=== PATIENT | male | born 1975 | race Caucasian/White ===

== ENCOUNTER 2018-06-13 09:27 | Emergency (ER) | payer SELFPAY ==
[2018-06-13 09:51] VITALS: TEMP 36.7
--- NOTE | 2018-06-13 10:49 | ED_ITS ---
HPI - Back Pain/Injury General Chief Complaint: Back Pain/Injury Stated Complaint: BACK PAIN X2 DAYS Time Seen by Provider: 06/13/18 10:49 Source: patient and other (coworker/boss) Mode of arrival: ambulatory Limitations: no limitations History of Present Illness HPI Narrative: This is a 42-year-old male who comes the emergency department with complaint of low back pain. Patient states it started 2 days ago. He s tates he was stepping down his into a boat when he stepped with his left leg he states he stepped sort of funny and he felt just a twinge or something release in his back and immediately started having pain. He states he has been quite uncomfortable. He has difficulty finding any comfort. He is actually lying flat on the floor in the room with his feet flat and knees bent. He states he tried the head but that it was not hard enough and that the floor feels better. We did discuss that I did recommend lying on the ER hospital for but he prefers to stay there. Patient denies any loss of bowel or bladder control. He does have some radiation down his left leg. He states that he is not having any numbness, tingling or weakness. He states it is worse with movement of his lower leg. Patient states he has a history of Graves disease and has had his thyroid removed and takes levothyroxine but denies any other medical issues. Related Data Home Medications Medication Instructions Recorded Confirmed levothyroxine 175 mcg PO DAILY 06/13/18 06/13/18 Previous Rx's Medication Instructions Recorded diazepam [Valium] 5 mg PO TID-QID PRN #20 tab 06/13/18 oxycodone-acetaminophen [Percocet] 1 tab PO Q4-6H PRN #20 tab 06/13/18 prednisone 40 mg PO DAILY #10 tab 06/13/18 Allergies Allergy/AdvReac Type Severity Reaction Status Date / Time Penicillins Allergy Severe Anaphylaxis Verified 06/13/18 09:54 Review of Systems Review of Systems ROS Unobtainable: All systems reviewed & are unremarkable except as noted in HPI and below Constitutional Denies weakness ENT Ears, Nose, Mouth, and Throat: Denies neck pain Gastrointestinal Gastrointestinal: Denies fecal incontinence Genitourinary Denies urinary frequency, Denies urinary hesitancy and Denies urinary incontinence Musculoskeletal Reports as per HPI, Reports abnormal gait, Reports back pain, Reports limited range of motion, Denies muscle weakness, Denies neck pain, Denies numbness, Reports radiating pain into limb (Left) and Denies tingling Integumentary/Breasts Denies unusual bruising Neurologic Reports abnormal gait, Denies focal weakness, Denies numbness, Reports radicular pain (Left leg), Denies sensory deficit, Denies tingling and Denies weakness PFSH Medical History Graves disease (Acute) Surgical History H/O thyroidectomy (Acute) Social History Smoking Status: Former smoker Social History Smoking Status: Former smoker Exam Narrative Exam Narrative: GENERAL: Alert and oriented x three, obese male in moderate distress. HEENT: Head normocephalic, atraumatic, EOMI, pupils reactive, face symmetric, moist mucous membranes NECK: Supple, full range of motion CARDIOVASCULAR: Regular rate and rhythm without murmurs, rubs or gallops. RESPIRATORY: Breath sounds equal bilaterally, no wheezes rales or rhonchi. ABDOMEN: Soft, nontender. Normoactive bowel sounds all 4 quadrants. No guarding or rebound, rigidity, no mass : No CVA tenderness BACK: No cervical, thoracic or lumbar vertebral point tenderness. Patient has decreased range of motion. Patient's gait is [antalgic/normal]. Patient finds it more comfortable lying flat on his back on the floor, with his feet flat on the floor in his knees bent. He states this is his most comfortable position. Rectal exam is deferred. Muscle strength is 5/5 in lower extremities, DTRs are 2/4 and lower extremities. Dorsalis pedis and tibialis pulses are 2+ and lower extremities. Sensation is intact in the lower extremities. EXTREMITIES: Normal range of motion, no clubbing or edema. Neurovascularly intact NEUROLOGICAL: Cranial nerves II through XII grossly intact. Moving all extremities SKIN: Warm, dry, no petechiae, no rashes or lesions. Initial Vital Signs Initial Vital Signs: Vital Signs Temperature 98.0 F 06/13/18 09:51 Course Orders Ordered: ED Orders 06/13/18 10:57 XR lumbar spine 2-3V Stat Discontinued Medications Diazepam (Valium) 5 mg PO NOW ONE Stop: 06/13/18 10:58 Last Admin: 06/13/18 11:08 Dose: 5 mg Hydromorphone HCl (Dilaudid) 1 mg IM NOW ONE Stop: 06/13/18 13:10 Last Admin: 06/13/18 13:16 Dose: 1 mg Ketorolac Tromethamine (Toradol) 60 mg IM NOW ONE Stop: 06/13/18 10:58 Last Admin: 06/13/18 11:08 Dose: 60 mg Oxycodone/Acetaminophen (Percocet 5/325) 2 tab PO NOW ONE Stop: 06/13/18 11:50 Last Admin: 06/13/18 11:52 Dose: 2 tab Vital Signs - 8 hr 06/13/18 09:51 06/13/18 12:43 06/13/18 13:47 Temperature 98.0 F Pulse Rate 61 80 Respiratory Rate 20 16 Blood Pressure [Right Wrist] 150/83 H 144/97 H Pulse Oximetry 98 97 MDM - Back Pain/Injury Imaging Data lspine xray: Radiologist's impression: [address] [address] XRay Report Signed Patient: Nba Dobbs WMR#: [id number] : 1975Acct:[id number] Age/Sex: 42 / MDate of Service: 06/13/18 Loc: ED Accession Number: [id number] Procedure: XR lumbar spine 2-3V Ordering Provider: Christine Lucio D.O. PROCEDURE: XR LUMBAR SPINE 2-3V INDICATIONS: low back pain, acute, stepped funny, left leg too TECHNIQUE: 3 views of the lumbar spine were acquired. COMPARISON: [facility], [place], L-SPINE W/O CONTRAST, 06/15/2011, 1:31. FINDINGS: Bones: 5 [id number] vertebrae are present. There is normal bony alignment. No vertebral body compression fractures. No suspicious bony lesions. Lucency of the L3 pars interarticularis resulting in grade 1 anterolisthesis of L3 on L4. Soft tissues: Overlying bowel gas pattern is normal. No suspicious soft tissue calcifications. IMPRESSION: 1. Progression of grade 1 anterolisthesis of L3 on L4 secondary to chronic pars defects. 2. No acute findings. Dictated by: Janneth Bush M.D. on 06/13/2018 at 12:12 Approved by: Janneth Bush M.D. on 06/13/2018 at 12:14 [facility] Narrative Medical decision making narrative: X-ray imaging was ordered at the request of his boss. They are here with him is this is a work-related injury. Patient is having quite a bit of pain in particular the left lower extremity so does not seem totally inappropriate although this is been a short-term acute problem. Patient was given Toradol IM and Valium p.o. patient mildly improved but still uncomfortable. Patient was given Percocet p.o. still quite uncomfortable given 1 mg Dilaudid subcutaneous. Patient was also given referral for Orthopedic surgery. Discharge Plan Departure Patient Disposition: Home Clinical Impression: Anterolisthesis Low back pain Qualifiers: Chronicity: acute Back pain laterality: left Sciatica presence: with sciatica Sciatica laterality: sciatica of left side Qualified Code(s): M54.42 - Lumbago with sciatica, left side Discharge Date/Time: 06/13/18 14:31 Interventions: ED Discharge Assessment Last Done: 06/13/18 14:31 Instructions: DI for Back Pain With Sciatica Activity Restrictions/Additional Instructions: Follow-up with the L&I physician in the next 5-7 days if your symptoms are not improving. Also included is referral to orthopedic surgery for follow up. Continue to take ibuprofen to 600 mg every 6 hr as needed for pain. Take steroids daily until gone. Take muscle relaxants every 6 hr as needed for spasm. This medication can make you sleepy do not drive, perform hazards activities or make any major decisions while taking them. Return to the emergency department for new weakness, numbness loss of sensation, loss of bowel or bladder control, rapidly worsening pain or other new or concerning symptoms. Prescriptions: New oxycodone-acetaminophen [Percocet] 5-325 mg tablet 1 tab PO Q4-6H PRN (Reason: pain) Qty: 20 RF: 0 diazepam [Valium] 5 mg tablet 5 mg PO TID-QID PRN (Reason: muscle spasm) Qty: 20 RF: 0 prednisone 20 mg tablet 40 mg PO DAILY Qty: 10 RF: 0 No Action levothyroxine 175 mcg tablet 175 mcg PO DAILY RF: 0 Referrals: Julia,Taurus M, MD [Physician] -
--- NOTE | 2018-06-13 10:57 | DI.RAD.S_ITS ---
PROCEDURE: XR LUMBAR SPINE 2-3V INDICATIONS: low back pain, acute, stepped funny, left leg too TECHNIQUE: 3 views of the lumbar spine were acquired. COMPARISON: [facility], CT, L-SPINE W/O CONTRAST, 06/15/2011, 1:31. FINDINGS: Bones: 5 [id number] vertebrae are present. There is normal bony alignment. No vertebral body compression fractures. No suspicious bony lesions. Lucency of the L3 pars interarticularis resulting in grade 1 anterolisthesis of L3 on L4. Soft tissues: Overlying bowel gas pattern is normal. No suspicious soft tissue calcifications. IMPRESSION: 1. Progression of grade 1 anterolisthesis of L3 on L4 secondary to chronic pars defects. 2. No acute findings. Dictated by: Janneth Bush M.D. on 06/13/2018 at 12:12 Approved by: Janneth Bush M.D. on 06/13/2018 at 12:14
[2018-06-13] MEDS: diazePAM 5 MG TABLET PO (11:08)
[2018-06-13] MEDS: KETOROLAC 60 MG/2 ML VIAL IM (11:08)
[2018-06-13] MEDS: OXYCODONE/ACETAMINOPHEN 5/325 TABLET 2 TAB PO (11:52)
[2018-06-13 12:43] VITALS: BP 150/83; PULSE 61; RESP 20; O2SAT 98
--- NOTE | 2018-06-13 12:44 | PC.NURSE ---
Patient is laying on the floor with feet propped up on chair. I asked if I could try and make him more comfortable in the bed, but patient insisted the floor was the place to be.
[2018-06-13] MEDS: HYDROMORPHONE 1 MG INJ IM (13:16)
[2018-06-13 13:47] VITALS: BP 144/97; PULSE 80; RESP 16; O2SAT 97
== END 2018-06-13 14:31 | disposition home or self-care (01) ==
PROVIDERS: Emergency Provider Emergency Medicine
DX: M43.10 Spondylolisthesis, site unspecified (principal); M54.42 Lumbago with sciatica, left side
CPT/HCPCS: 72100; 96372; 99283; J1170; J1885